=== PATIENT | male | born 1990 | race Caucasian/White ===

== ENCOUNTER 2017-11-04 18:45 | Observation (INO) | payer OTHER ==
[2017-11-04 19:43] LABS: PLATELET COUNT 229 10^3/uL (150-400)
--- NOTE | 2017-11-04 19:58 | EDPHY ---
H & P Time Seen by Provider: 11/04/17 19:32 HPI/ROS: CHIEF COMPLAINT: Abdominal pain HISTORY OF PRESENT ILLNESS: 27-year-old male presents to the emergency department by private vehicle complaining of lower abdominal pain. The pain began abruptly few hours prior to arrival. He initially had generalized abdominal pain near the umbilicus. He now feels that is in his lower abdomen more so on the right than the left. No back pain. No urinary symptoms. He has never had this pain in the past. No reported trauma. No nausea, vomiting or diarrhea. No chest pain or difficulty breathing. REVIEW OF SYSTEMS: Constitutional: No fever, no chills. Eyes: No double or blurry vision. ENT: No sore throat. Respiratory: No cough, no shortness of breath. Cardiac: No chest pain. Gastrointestinal: Abdominal pain as above. No vomiting or diarrhea Genitourinary: No dysuria. Musculoskeletal: No neck or back pain. Skin: No rashes. Neurological: No headache. Past Medical/Surgical History: Negative Social History: Single and lives in [place] Smoking Status: Never smoked Physical Exam: General Appearance: Alert, no distress. Afebrile. Stable vital signs Eyes: Pupils equal and round. Extraocular motions are all intact. ENT: Mouth: Mucous membranes moist. Respiratory: No wheezing, rhonchi, or rales, lungs are clear to auscultation. Cardiovascular: Regular rate and rhythm. Gastrointestinal: The abdomen is soft. Tenderness with palpation especially in the suprapubic area as well as in the right lower quadrant over McBurney's point. No rebound, guarding or masses noted. No CVA tenderness bilaterally. Neurological: Alert and oriented x 3, cranial nerves II through XII grossly intact Skin: Warm and dry, no rashes. Musculoskeletal: Nontender to palpate along the cervical, thoracic or lumbar spine. Neck is supple. Extremities: Full range of motion and no peripheral edema. Psychiatric: Patient is oriented X 3, there is no agitation. Constitutional: Initial Vital Signs Temperature (C) 36.7 C 11/04/17 18:49 Heart Rate 75 11/04/17 18:49 Respiratory Rate 18 11/04/17 18:49 Blood Pressure 112/76 11/04/17 18:49 O2 Sat (%) 99 11/04/17 18:49 O2 Delivery Mode Room Air Allergies/Adverse Reactions: No Known Allergies Allergy (Unverified 11/04/17 18:49) Home Medications: Medication Instructions Recorded NK [No Known Home Meds] 11/04/17 Medical Decision Making - Diagnostics Imaging Results: Imaging Impressions Abdomen CT 11/04/17 19:55 Impression: 1. Acute appendicitis. 2. Moderate constipation. Findings were discussed with DEVON KRAUS PA-C at 20:49, on 11/04/2017. Imaging: Discussed imaging studies w/ will call clerk Radiologist ED Course/Re-evaluation: 27-year-old male presents to the emergency department with abdominal pain. I was concerned about possible acute appendicitis. Patient was kept NPO. Laboratory studies were drawn patient had elevated white blood cell count of over 14,000. I discussed the pros and cons of CT imaging of his abdomen and pelvis including radiation exposure the patient agrees with CT scan. CT imaging reveals acute appendicitis measuring 13 mm without evidence of perforation. 8:50 p.m.: Patient was kept NPO. He was given 1 g of Invanz IV. Dr. Casas, on-call surgeon, has been called. Differential Diagnosis: Including but not limited to acute appendicitis, kidney stone, urinary tract infection, pyelonephritis, testicular torsion - Data Points Laboratory Results: Laboratory Results 11/04/17 19:30 11/04/17 19:30 11/04/17 11/04/17 11/04/17 19:30 19:30 19:30 WBC 14.50 10^3/uL H 10^3/uL (3.80-9.50) RBC 5.26 10^6/uL 10^6/uL (4.40-6.38) Hgb 16.9 g/dL g/dL (13.7-17.5) Hct 47.2 % % (40.0-51.0) MCV 89.7 fL fL (81.5-99.8) MCH 32.1 pg pg (27.9-34.1) MCHC 35.8 g/dL g/dL (32.4-36.7) RDW 11.8 % % (11.5-15.2) Plt Count 229 10^3/uL 10^3/uL (150-400) MPV 11.0 fL fL (8.7-11.7) Neut % (Auto) 84.6 % H % (39.3-74.2) Lymph % (Auto) 8.5 % L % (15.0-45.0) [place] % (Auto) 6.0 % % (4.5-13.0) Eos % (Auto) 0.3 % L % (0.6-7.6) Baso % (Auto) 0.3 % % (0.3-1.7) Nucleat RBC Rel Count 0.0 % % (0.0-0.2) Absolute Neuts (auto) 12.25 10^3/uL H 10^3/uL (1.70-6.50) Absolute Lymphs (auto) 1.23 10^3/uL 10^3/uL (1.00-3.00) Absolute Monos (auto) 0.87 10^3/uL H 10^3/uL (0.30-0.80) Absolute Eos (auto) 0.05 10^3/uL 10^3/uL (0.03-0.40) Absolute Basos (auto) 0.05 10^3/uL 10^3/uL (0.02-0.10) Absolute Nucleated RBC 0.00 10^3/uL 10^3/uL (0-0.01) Immature Gran % 0.3 % % (0.0-1.1) Immature Gran # 0.05 10^3/uL 10^3/uL (0.00-0.10) Sodium 143 mEq/L mEq/L (135-145) Potassium 3.7 mEq/L mEq/L (3.5-5.2) Chloride 102 mEq/L mEq/L (97-110) Carbon Dioxide 25 mEq/l mEq/l (22-31) Anion Gap 16 mEq/L mEq/L (8-16) BUN 15 mg/dL mg/dL (7-23) Creatinine 0.9 mg/dL mg/dL (0.7-1.3) Estimated GFR > 60 Glucose 110 mg/dL H mg/dL (70-100) Calcium 10.3 mg/dL mg/dL (8.5-10.4) Urine Color YELLOW Urine Appearance CLEAR Urine pH 6.0 (5.0-7.5) Ur Specific [place] 1.024 (1.002-1.030) Urine Protein NEGATIVE (NEGATIVE) Urine Ketones NEGATIVE (NEGATIVE) Urine Blood NEGATIVE (NEGATIVE) Urine Nitrate NEGATIVE (NEGATIVE) Urine Bilirubin NEGATIVE (NEGATIVE) Urine Urobilinogen NEGATIVE EU EU (0.2-1.0) Ur Leukocyte Esterase NEGATIVE (NEGATIVE) Urine Glucose NEGATIVE (NEGATIVE) Medications Given: Acetaminophen (Tylenol) 1,000 mg PO Q8H [facility] Stop: 05/03/18 22:14 Last Admin: 11/05/17 00:24 Dose: Not Given Ketorolac Tromethamine (Toradol) 30 mg IVP Q6HRS CHADD Stop: 11/10/17 00:00 Last Admin: 11/04/17 23:52 Dose: 30 mg Discontinued Medications Cefazolin Sodium (Ancef Syringe) Confirm Administered Dose 2 gm .ROUTE .STK-MED ONE Stop: 11/04/17 22:03 Last Admin: 11/04/17 23:25 Dose: 1 gm Ertapenem (Invanz) 1 gm IVP EDNOW ONE PRN Reason: Protocol Stop: 11/04/17 20:51 Last Admin: 11/04/17 21:15 Dose: 1 gm Fentanyl (Sublimaze) 25 - 100 mcg IVP Q5M PRN PRN Reason: PACU, IMMEDIATE Pain control Stop: 11/05/17 00:11 Last Admin: 11/05/17 00:03 Dose: 25 mcg Heparin Sodium (Porcine) (Heparin Sc Injection) Confirm Administered Dose 10, 000 unit .ROUTE .STK-MED ONE Stop: 11/04/17 22:03 Last Admin: 11/04/17 23:25 Dose: 5,000 unit Departure - Departure Disposition: To OP Cath/Surgery Clinical Impression: Acute appendicitis Qualifiers: Acute appendicitis type: with localized peritonitis Qualified Code(s): K35.3 - Acute appendicitis with localized peritonitis Condition: Good
[2017-11-04] MEDS ORDERED: IOPAMIDOL (ISOVUE-300) 100 ML BTL ONE (20:01)
[2017-11-04] MEDS ORDERED: ERTAPENEM 1 GM VIAL IVP ONE (20:50)
[2017-11-04] MEDS ORDERED: HEPARIN 5,000 UNIT/0.5 ML SYR ONE (22:02)
[2017-11-04] MEDS ORDERED: ceFAZolin 1 GM/5 ML SYR ONE (22:02)
[2017-11-04] MEDS ORDERED: ONDANSETRON 4 MG/2 ML VIAL IVP PRN ×2 (22:13→23:11)
[2017-11-04] MEDS ORDERED: HYDROmorphONE/DILAUDID 1 MG/ML INJ IVP PRN ×2 (22:13→23:11)
--- NOTE | 2017-11-04 22:20 | PDANEPAE ---
ANE History of Present Illness 27 year old with acute appendicitis presents for lap appy. ANE Past Medical History - Cardiovascular History Hx Hypertension: No Hx Arrhythmias: No Hx Chest Pain: No Hx Coronary Artery / Peripheral Vascular Disease: No Hx CHF / Valvular Disease: No Hx Palpitations: No - Pulmonary History Hx COPD: No Hx Asthma/Reactive Airway Disease: No Hx Recent Upper Respiratory Infection: No Hx Oxygen in Use at Home: No Hx Sleep Apnea: No - Endocrine History Hx Diabetes: No Hypothyroid: No Hyperthyroid: No Obesity: no - Renal History Hx Renal Disorders: No - Liver History Hx Hepatic Disorders: No - Neurological & Psychiatric Hx Hx Neurological and Psychiatric Disorders: No - Cancer History Hx Cancer: No - Congenital Disorder History Hx Congenital Disorders: No - GI History Hx Gastrointestinal Disorders: No - Chronic Pain History Chronic Pain: No ANE Review of Systems Review of systems is: negative Review of Systems: - Exercise capacity Exercise capacity: >=4 METS ANE Patient History - Allergies Allergies/Adverse Reactions: No Known Allergies Allergy (Unverified 11/04/17 18:49) - Home Medications Home medications: home medication list seen and reviewed Home Medications: NK [No Known Home Meds] 11/04/17 [Last Taken Unknown] - NPO status NPO Status: no food or drink >8 hours NPO Since - Liquids (Date): 11/04/17 NPO Since - Liquids (Time): 19:00 NPO Since - Solids (Date): 11/04/17 NPO Since - Solids (Time): 12:00 - Anes Hx Anes Hx: no prior problems - Smoking Hx Smoking Status: Never smoked Marijuana use: No - Alcohol Use Alcohol Use: Rarely - Family Anes Hx Family Anes Hx: neg - N/A ANE Labs/Vital Signs - Labs Result Diagrams: 11/04/17 19:30 11/04/17 19:30 - Vital Signs Vital Signs: reviewed preoperatively; see RN documention for details Blood Pressure: 118/78 Heart Rate: 74 Respiratory Rate: 16 O2 Sat (%): 96 Height: 177.8 cm Weight: 81.647 kg ANE Physical Exam - Airway Neck exam: FROM Mallampati Score: Class 2 - Pulmonary Pulmonary: no respiratory distress - Cardiovascular Cardiovascular: regular rate and rhythym - ASA Status ASA Status: II ANE Anesthesia Plan Anesthesia Plan: general endotracheal anesthesia Total IV Anesthesia: No
[2017-11-04] MEDS ORDERED: PROPOFOL 200 MG/20 ML VIAL ONE (22:30)
[2017-11-04] MEDS ORDERED: fentaNYL 100 MCG/2 ML INJ ONE ×2 (22:30→23:50)
[2017-11-04] MEDS ORDERED: ROCURONIUM 50 MG/5 ML VIAL ONE (22:30)
[2017-11-04] MEDS ORDERED: LR 1,000 ML IV SCH (22:30)
[2017-11-04] MEDS ORDERED: LIDOCAINE 2% 5 ML SDV ONE (22:30)
[2017-11-04] MEDS ORDERED: DEXAMETHASONE 4 MG/ML VIAL ONE (22:30)
[2017-11-04] MEDS ORDERED: ONDANSETRON 4 MG/2 ML VIAL ONE (22:30)
--- NOTE | 2017-11-04 22:35 | GHP ---
[f rep st] PREOP HISTORY AND PHYSICAL DATE OF ADMISSION: 11/04/2017 ADMITTING DIAGNOSIS: Acute appendicitis. HISTORY: The patient is a 27-year-old male who has had an upper respiratory tract infection for the past week. At noon today, his appetite was diminished. He ate, nonetheless. Approximately 20 minutes later, he had the onset of epigastric discomfort. Subsequently, he developed increasing nausea, and the pain moved to the periumbilical region. He developed chills. Approximately an hour later, it shifted to the right lower quadrant. He did take Advil. As mentioned, he has had an upper respiratory tract infection, but he has not had diarrhea. He has had no history of inflammatory bowel disease in himself or the family. There is no history of travel outside the [place] or antibiotic use. He has had no prior abdominal surgery or similar symptoms. He came to the emergency room, and a CAT scan showed an appendix with periappendiceal inflammation and a distended appendix. His white count was 14.5 with 87% neutrophils, and I was called to see the patient in consultation. SOCIAL HISTORY: He is a nonsmoker. He does drink an occasional glass of wine. ALLERGIES: He has no known drug allergies. MEDICATIONS: He is not taking medications. PAST MEDICAL HISTORY: Prior surgeries include a tonsillectomy, myringotomy tubes, right distal tuft fracture of his right thumb, and a fracture of his left index finger which required pinning. There is no history of rheumatic fever, tuberculosis, hepatitis, or transfusions. REVIEW OF SYSTEMS: He wears contacts for visual correction. He has no limits on his activities and no history of steroid use. PHYSICAL EXAMINATION: GENERAL: He is awake, alert, and conversant. LYMPH: There is no cervical, supraclavicular, axillary, or inguinal lymphadenopathy. LUNGS: Clear to auscultation. BACK: Unremarkable. CARDIAC: Shows S1, S2 to be normal with normal split of S2. He is tender with cough. ABDOMEN: He has an 8 at McBurney's point. Psoas and obturator signs are negative. Bowel sounds are hypoactive. To palpation, his left upper quadrant is 1, left mid abdomen is 1, left lower quadrant is 1, epigastrium is 1, periumbilical area is 3, suprapubic area is 1, right upper quadrant is 2, right mid abdomen is 6. Over the right iliac crest, it is 2; in the right lower quadrant, it is 3. VITAL SIGNS: Temperature 37.6, blood pressure 127/70, heart rate of 83. DATA REVIEWED: Platelet count 279, hematocrit 47. Specific gravity 1.024. IMPRESSION: This patient clearly has appendicitis. There is no fluid seen in the pelvis. He has received Invanz and fluid. PLAN: I will plan a laparoscopic appendectomy. /[id number]/MODL MTDD
[2017-11-04] MEDS ORDERED: PHENYLEPHRINE HCL 100 MCG/ML SYR IVP PRN (23:11)
[2017-11-04] MEDS ORDERED: LR 500 ML IV PRN (23:11)
[2017-11-04] MEDS ORDERED: NALOXONE HCL 0.4 MG/ML INJ IVP PRN (23:11)
[2017-11-04] MEDS ORDERED: SUGAMMADEX SODIUM 200 MG/2 ML VIAL IVP ONE (23:17)
--- NOTE | 2017-11-04 23:47 | POSTANESTH ---
Post Anesthetic Evaluation Cardiovascular Status: Normal, Stable, Similar to Pre-Op Cond Respiratory Status: Normal, Stable, Similar to Pre-op Cond. Level of Consciousness/Mental Status: Can Participate in Eval, Alert and Oriented Pain Control: Adequate, Prn Tx Ordered Nausea/Vomiting Control: Adequate, Prn Tx Ordered Complications Possibly Related to Anesthesia: None Noted
[2017-11-04] MEDS ORDERED: KETOROLAC 30 MG/1 ML SDV ONE (23:50)
--- NOTE | 2017-11-04 23:50 | POSTOPPROG ---
Post Op Note Date of Operation: 11/04/17 Surgeon: Chriss Casas Anesthesia: GET(General Endotracheal) Pre-op Diagnosis: acute appendicitis Post-op Diagnosis: acute unruptured appendicitis with mesenteric adenitis Indication: acute appendicitis Procedure: lap appendectomy Findings: acute unruptured appendicitis with mesenteric adenitis Inf/Abcess present in the surg proc area at time of surgery?: No EBL: Minimal Total fluids administered: 1000 Complications: none Specimen(s): appendix
[2017-11-04] MEDS: fentaNYL 100 MCG/2 ML INJ IVP PRN (23:51)
[2017-11-04] MEDS: KETOROLAC 30 MG/1 ML SDV IVP SCH (23:52)
[2017-11-05] MEDS: fentaNYL 100 MCG/2 ML INJ IVP PRN (00:03)
[2017-11-05] MEDS: ACETAMINOPHEN 500 MG TAB PO SCH ×3 (00:24→13:11)
--- NOTE | 2017-11-05 06:01 | GOP ---
[f rep st] OPERATIVE REPORT DATE OF OPERATION: 11/04/2017 SURGEON: Chriss Casas MD ANESTHESIA: General endotracheal. PREOPERATIVE DIAGNOSIS: Acute appendicitis. POSTOPERATIVE DIAGNOSIS: Acute unruptured appendicitis with mesenteric adenitis. PROCEDURE PERFORMED: Laparoscopic appendectomy. FINDINGS: Acute unruptured appendicitis with mesenteric adenitis. SPECIMENS: Appendix. ESTIMATED BLOOD LOSS: Minimal. INDICATIONS: Acute appendicitis. DESCRIPTION OF PROCEDURE: The patient was appropriately consented and placed on the operating table in supine position. After induction of adequate general endotracheal anesthesia, the abdomen was car efully clipped, prepped, and draped. A surgical time-out was carried out and agreed to by all member s of the operative team. A curvilinear incision was planned at the umbilicus. An oblique left lower quadrant incision and a t ransverse suprapubic incision were also planned. At each site the skin was incised sharply, and the incision was deepened with Bovie electrocautery. At the umbilical site, dissection was carried down to the anterior rectus sheath which was elevated on either side of the midline with Allis clamps. Th e fascia was incised in the midline. A pursestring of #0 PDS was placed. The peritoneum was entered. An 11/12 mm disposable Samuel trocar was placed. The abdominal cavity w as inflated to 15 mmHg at high flow. A 5 mm port was placed through the left lower quadrant oblique incision, and a second was placed through a transverse suprapubic incision. There was no evidence of inguinal hernias. The cecum was draped into the pelvis. It was carefully elevated to reveal the ap pendix. The mesoappendix was carefully divided with the Harmonic scalpel. Once the appendix had bee n skeletonized at its base on the cecum, the 35 mm Endo-STACY stapler was used to fire across the base of the cecum, taking a cuff of cecum with the appendix. The appendix was placed in an EndoCatch bag and carefully retrieved. Pneumoperitoneum was re-established. The small intestine was run for a distance of approximately 3 f eet. Mesenteric adenitis was noted. There was no evidence of Meckel diverticulum. The ports were removed under direct vision. This was done after irrigation with heparin and Ancef co ntaining irrigant had been carried out. Hemostasis was excellent. The umbilical port site was removed. A simple suture of #0 PDS was placed at the midpoint of the midline infraumbilical incision. The pursestring was tied first, then the si mple suture. This resulted in excellent closure. Subcutaneous tissues were well irrigated and check ed. There was no evidence of any bleeding. At all sites, inverted simple sutures of #4-0 Vicryl wer e placed. Mastisol and Steri-Strips were positioned. Band-Aids were placed. The patient was transf erred to recovery in stable and satisfactory condition. FLUIDS ADMINISTERED: 1000 cc. COMPLICATIONS: None. /[id number]/MODL
[2017-11-05] MEDS: KETOROLAC 30 MG/1 ML SDV IVP SCH ×2 (06:34→11:33)
--- NOTE | 2017-11-05 12:20 | ASMTCMCOM ---
CM Note CM Note Notes: Spoke w/RN, anticipate will dc home independent when medically stable. CM available for any changes. DC Plan: Independent Date Signed: 11/05/2017 12:19 PM Electronically Signed By:Melonie Feng RN
[2017-11-05 13:17] VITALS: BP 107/63; PULSE 54; RESP 17; O2SAT 96
--- NOTE | 2017-11-05 15:33 | SOAPPROG ---
SOAP Progress Note Assessment/Plan: 11/05/2017 POD#1 Assessment: Doing well, Eating, passing flatus and pain is well controlled. Plan: Discharge Subjective: I feel so much better!! Objective: Vital Signs Temp Pulse Resp BP Pulse Ox 36.8 C 54 L 17 107/63 96 11/05/17 11:20 11/05/17 12:39 11/05/17 12:39 11/05/17 12:39 11/05/17 12:39 11/04/17 11/05/17 11/06/17 05:59 05:59 05:59 Intake Total 1850 Output Total 5 500 Balance 1845 -500 - Time Spent With Patient Time Spent With Patient: 15 - Pending Discharge Pending Discharge Within 24 Hours: Yes Pending Discharge Date: 11/06/17 Pending Discharge Time: 11:00 Physical Exam - Physical Exam General Appearance: WD/WN, alert, no apparent distress Neck: non-tender, full range of motion, supple Respiratory: chest non-tender, lungs clear, normal breath sounds Cardiac/Chest: regular rate, rhythm Abdomen: normal bowel sounds, non-tender, soft Male Genitalia: deferred Rectal: deferred Back: Normal inspection Skin: normal color, warm/dry Neuro/Psych: no motor/sensory deficits, alert, normal mood/affect, oriented x 3 ICD10 Worksheet Patient Problems: Problems Problem Status Onset Acute appendicitis Acute
[2017-11-05 16:27] VITALS: TEMP 98.3
--- NOTE | 2017-11-05 16:31 | ASMTLACE ---
ANH Length of stay for Answers: 1 day current admission Acuity / Level of Answers: No Care: Did the patient have an inpatient admission? # of Emergency department Answers: 0 visits in the last 6 months Score: 1 Date Signed: 11/05/2017 04:30 PM Electronically Signed By:Melonie Feng RN
--- NOTE | 2017-11-05 16:35 | ASDISCHSUM ---
Discharge Information Plan Status:Home with No Needs Medically Cleared to Leave: Discharge Date:11/05/2017 04:25 PM CM D/C Disposition:Home, Routine, Self-Care ADT D/C Disposition:Home, Routine, Self-Care Projected Discharge Date:11/05/2017 04:25 PM Transportation at D/C:Friend Discharge Delay Reason: Follow-Up Date:11/05/2017 04:25 PM Discharge Slot: Final Diagnosis: Placement Information Patient Contact Information Contact Name:RUDDY Relationship:Father Address: Work Phone: City: [facility] Phone: State/Zip Code: Email: Financial Information Financial Class:HMO and PPO Plans Primary Plan Desc:[employer] Primary Plan Number:[id number] Secondary Plan Desc: Secondary Plan Number: Assessment Information [facility] CM Progress Note CM Note CM Note Notes: Spoke w/RN, anticipate will dc home independent when medically stable. CM available for any changes. DC Plan: Independent Date Signed: 11/05/2017 12:19 PM Electronically Signed By:Melonie Feng RN LACE LACE Length of stay for Answers: 1 day current admission Acuity / Level of Answers: No Care: Did the patient have an inpatient admission? # of Emergency department Answers: 0 visits in the last 6 months Score: 1 Date Signed: 11/05/2017 04:30 PM Electronically Signed By:Melonie Feng RN Intervention Information
--- NOTE | 2017-11-06 01:03 | GDS ---
[f rep st] DISCHARGE SUMMARY DISCHARGE DIAGNOSIS: Acute appendicitis with mesenteric adenitis. CONDITION ON DISCHARGE: Improved. DISPOSITION: Home. DIET: No restrictions, though I have recommended that he avoid constipating foods such as bananas, r ice, applesauce, and cheese. His texture is normal. DISCHARGE MEDICATIONS: Tylenol 1000 mg every 8 hours, Toradol 10 mg every 6 hours. He will use Dila udid 2 mg every 4 hours as needed for breakthrough pain. For the next 3 weeks he is to lift less divina n 10 pounds. He is to shower only and to keep the Steri-Strips in place. He is also to take a multi vitamin with zinc, copper, and C daily. He is to watch for signs of infection, specifically for supe rficial infection such as redness, warmth, swelling or tenderness, and for deep infection as manifest ed by fevers, chills, loss of appetite, abdominal pain, and malaise. He is to follow up with Dr. Lulu Johnson' office in 10 days. HOSPITAL COURSE: The patient was admitted and taken to the operating room. He has done wonderfully since then. He is eating, passing gas, and feels quite well. His incisions are clean and dry. His abdomen is soft. His lungs are clear. I feel he is set for discharge. /[id number]/MODL
== END 2017-11-05 16:25 | disposition home or self-care (01) ==
LOC: F3E 11-05 00:13
PROVIDERS: ADMIT Surgery; ATTEND Surgery
PROC: 0DTJ4ZZ Resection of Appendix, Percutaneous Endoscopic Approach (ICD-10-PCS; principal; 2017-11-04 22:30)
DX: K35.80 Unspecified acute appendicitis (principal); I88.0 Nonspecific mesenteric lymphadenitis; K59.00 Constipation, unspecified
CPT/HCPCS: 44970; 74177; 96374; 99285; G0378; J1100; J1170; J1335; J1885; J2405; J2704; J3010; Q9967